=== PATIENT | male | born 1985 | race Caucasian/White ===

== ENCOUNTER 2016-11-02 09:57 | Emergency (ER) | payer MEDICAID ==
[2016-11-02 10:12] VITALS: BP 126/77
--- NOTE | 2016-11-02 10:24 | ED Physician Chart ---
Chief Complaint/HPI - Patient Information Date Seen:: 11/02/16 Time Seen:: 10:24 Chief Complaint:: SORE THROAT X 3 DAYS History of Present Illness:: This 31 year old male presents with sore throat that began 3 days ago. He rates the pain as 5/10 and describes the chacter as scratchy. The pain is worse when he swallows. He has found no relieving factors. He has had a fever for the past 4 days and a cough for the past 3 days. NO history of chills or diaphoresisl NO respiratory disress or chest pain. NO hempotysis. NO rash. NO tender lymphnodes in his neck. The patient had a secondary concern that he had a decreased flow of his urinary stream. He further informed me that he had been having frequent UTI's since his teens. NO acute dysuria, frequency or hematuria. Allergies:: Allergies Allergy/AdvReac Type Severity Reaction Status Date / Time No Known Allergies Allergy Verified 11/02/16 10:10 Vitals:: Vital Signs - 8 hr 11/02/16 11/02/16 10:12 10:13 Temp 99.1 F HR 107 RR 16 BP 126/77 126/77 O2 Sat % 99 Review of Systems - Review of Systems General/Constitutional: No fever, No chills, No weight loss, No diaphoresis, No edema Skin: No skin lesions, No rash, No bruising Head: No headache, No light-headedness Eyes: No loss of vision, No pain, No diplopia ENT: No earache, No nasal drainage, Sore throat, No tinnitus Neck: No neck pain, No thyromegaly, No stiffness, Mass noted Cardio Vascular: No chest pain, No palpitations, No edema Pulmonary: No SOB, Cough (cough x 3 days), No sputum, No wheezing GI: Nausea, No vomiting (vomitted x 2 yesterday) G/U: No dysuria, No frequency, No hematuria Musculoskeletal: Bone or joint pain, Muscle pain, Other (pt has had both generalized myalgias and arthratalgias.) Endocrine: No polyuria, No polydipsia Psychiatric: No prior psych history, No suicidal ideation Hematopoietic: No bruising Allergic/Immuno: No urticaria, No angioedema Neurological: No syncope, No weakness, No headache, No seizure, No confusion, No vertigo Past Medical History - Past Medical History Past Medical History: No significant medical hx Social History: Non Smoker, No Alcohol, No Drug Use Family Medical History - Family Member Father Hx Family Cancer: No Hx Family Coronary Artery Disease: No Hx Family Congestive Heart Failure: No Hx Family Hypertension: No Hx Family Stroke: No Hx Family Diabetes: No Hx Family Seizures: No Hx Family Dementia: No Hx Family AIDS: No Hx Family HIV: No Hx Family COPD: No Hx Family Hepatitis: No Hx Family Psychiatric Problems: No Hx Family Tuberculosis: No Physical Exam - Physical Examination General/Constitutional: Well-developed, well-nourished, Alert, No distress, GCS 15, Non-toxic appearing, Ambulatory Head: Atraumatic Eyes: Lids, conjuctiva normal, EOMI Skin: Nl inspection, No rash, No skin lesions, No ecchymosis, No lymphadenopathy ENMT: External ears, nose nl, TM canals nl, Nasal exam nl Other ENMT comments:: both tonsils with white exudate over 30% of surface. Neck: Nontender, Full ROM w/o pain, No JVD, No nuchal rigidity, No mass Other Neck comments:: no adenopathy in anterior neck. Respiratory: Nl effort/Exclusion, Clear to Auscultation, No Wheeze/Rhonchi/ Rales (mild tachycardia in the 115 range.) Cardio Vascular: No murmur, gallop, rubs, NL S1 S2, Carotid/Femoral/Distal pulses equal bilaterally GI: No tenderness/rebounding/guarding, No organomegaly, No hernia, Normal BS's, Nondistended, No mass/bruits, No McBurney tenderness : No CVA tenderness, NL external genitalia, No discharge Other comments:: UN-CIRCOMIZED. NO TESTICULAR TENDERNESS OR MASSES. Extremities: normal strength in all extremities, No edema, Normal digits & nails Neuro/Psych: Alert/oriented, DTR's symmetric, Normal sensory exam, Normal motor strength, Judgement/insight normal, Mood normal, Normal gait, No focal deficits Misc: Normal back, No paraspinal tenderness Labs/Radiology/EKG Results - Lab Results Results: Laboratory Tests 11/02/16 11/02/16 10:30 11:20 Urine Source RANDOM Urine Color YELLOW Urine Clarity SLIGHT HAZY Urine pH 6.5 Ur Specific [place] 1.015 Urine Protein 30 H Urine Glucose (UA) 100 H Urine Ketones 40 H Urine Blood TRACE Urine Nitrate NEGATIVE Urine Bilirubin LARGE H Urine Ictotest POSITIVE H Urine Urobilinogen >=8.0 H Ur Leukocyte Esterase NEGATIVE Urine RBC 0-2 H Urine WBC 2-5 H Ur Epithelial Cells FEW Urine Bacteria FEW Urine Mucus MODERATE Grp A Beta Strep Ag NEGATIVE STREP RAPID SCREEN WAS NEGATIVE FOR GROUP A STREP NO ACUTE UTI. PSA STILL PENDING AN SHOULD BE AVAILABLE TOMORROW. PSA OF 1.3 WHICH IS WELL WITHIN THE NORMAL LEVEL. PT WAS CALLED THIS DATE 11/05/2016 AND GIVEN THE RESULTS. PT WAS STILL ADVISED HE SHOULD SEEK UROLOGIST FOR WORK UP OF DECREASED FLOW AND HX OF FREQUENT UTI'S CHILD. HE ALSO HAD2-5 WBC/HPF. Assessment - Assessment General Assessment: CASE SUMMARY: THIS 22 YEAR OLD MALE PRESENTS WITH A 3 DAY HISTORY OF SORE THROAT AND A WHITE EXUDATE ON HIS TONSILS. HE'S HAD 4-5 DAYS OF FEVER AND COUGH FOR 3 DAYS. NO SWOLLEN GLANDS IN NECK. NO RASH. TREATED WITH 10 MG DEXAMETHASONE IM FOR PAIN. MOST LIKELY VIRAL PHARYNGITIS/TONSILLITIS. SECOND ISSUE WITH DECREASED URINARY STREAM AND HIS OF UTI'S CHILD. UA WITH 2-5 WBC' s. NO ACUTE UTI BUT ADVISED TO HAVE HIS PMD REFER HIM TO A UROLOGIST. MDM DDX FOR SORE THROAT: NOT KANNAN-TONSILLAR ABSCESS BASED ON PHYSICAL EXAM. NOT LEMIERRE'S SYNDROME BASED ON HISTORY AND EXAM. NO TENDERNESS ALONG MARFINS OF EITHER SCM Muscle. NOT DIPTHERIA BASED ON HISTORY AND EXAM. ED Septic Shock - . Is Septic Shock (SBP<90, OR Lactate>4 mmol\L) present?: No - <6hrs of presentation: Vital Signs: Vital Signs - 8 hr 11/02/16 11/02/16 10:12 10:13 Temp 99.1 F HR 107 RR 16 BP 126/77 126/77 O2 Sat % 99 Reassessment (Disposition) - Reassessment Reassessment Condition:: Improved - Diagnosis Diagnosis:: ACUTE PHARYNGITIS, MOST LIKELY VIRAL. - Aftercare/Follow up Instructions Aftercare/Follow-Up Instructions:: Counseled pt regarding lab results/diagnosis & need follow up, Counseled pt & family regarding lab results/diagnosis & need follow up ED Discharge Plan - Patient Disposition Admit/Discharge/Transfer: PT DISCHARGED HOME Condition at Disposition: Stable Instructions: Tonsillitis, [id number], Urinary Tract Infection, [id number] Accepting Physician: Erick Wu [Active] - 1-3 Days
[2016-11-02] MEDS ORDERED: Dexamethasone Sodium Phos 4 mg/mL Vial IM STA (11:18)
[2016-11-02] MEDS ORDERED: Dexamethasone Sodium Phos 10 mg/mL PF Vial ONE (11:21)
[2016-11-02] MEDS ORDERED: Sodium Chloride 0.9% 1,000 ML IV ONE (11:32)
[2016-11-02 12:03] LABS: URINE COLOR YELLOW
[2016-11-02 12:04] LABS: URINE BILIRUBIN LARGE (NEGATIVE); URINE BLOOD TRACE (NEGATIVE); URINE GLUCOSE (UA) 100 mg/dL (NEGATIVE); URINE KETONE 40 mg/dL (NEGATIVE); URINE PH 6.5; URINE PROTEIN 30 mg/dL (NEGATIVE); URINE UROBILINOGEN >=8.0 E.U./dL (0.2 - 1.0)
[2016-11-02 12:11] LABS: URINE BACTERIA FEW /hpf (NONE SEEN); URINE EPITHELIAL CELLS FEW /lpf (FEW); URINE RBC 0-2 /hpf (0-5)
== END 2016-11-02 11:45 | disposition home or self-care (01) ==
LOC: ER 09:57
DX: J02.9 Acute pharyngitis, unspecified (principal)
CPT/HCPCS: 36415-UA; 81001-TC; 84153-90; 86318-90; 87081-90; 87899-90; Z7502